=== PATIENT | female | born 1990 | race Caucasian/White ===

== ENCOUNTER 2019-03-17 11:36 | Emergency (ER) | payer OTHER ==
[2019-03-17 11:53] VITALS: BP 149/97
--- NOTE | 2019-03-17 12:10 | UC ---
Bite Injury/Animal HPI - HPI Summary HPI Summary: 29-year-old woman comes in with a chief complaint of dog bite to the left forearm. 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 Patient herself has been immunized for rabies. There was some bleeding from the wound there's 2 puncture wounds. Bleeding was stopped by direct pressure. Patient has full range of motion of the elbow wrists and fingers. Range of motion is painless. I asked the patient if she was worried about a broken bone she denies any concern or broken bone she feels the injury is only into the subcutaneous tissue. - History of Current Complaint Chief Complaint: UCBiteInjury Stated Complaint: DOG BITE Time Seen by Provider: 03/17/19 11:58 Hx Last Menstrual Period: 02/24/19 Pain Intensity: 5 - Allergies/Home Medications Allergies/Adverse Reactions: Allergies Allergy/AdvReac Type Severity Reaction Status Date / Time No Known Allergies Allergy Verified 03/17/19 11:53 Home Medications: Home Medications Sertraline* [Zoloft*] 200 mg PO BEDTIME 03/17/19 [History Confirmed 03/17/19] diPHENhydraMINE PO* [Benadryl PO 50 MG CAP*] 1 tab PO DAILY 03/17/19 [History Confirmed 03/17/19] PMH/Surg Hx/FS Hx/Imm Hx Previously Healthy: Yes - Surgical History Surgical History: Yes Surgery Procedure, Year, and Place: wisdom teeth - Family History Known Family History: Positive: Non-Contributory - Social History Alcohol Use: None Substance Use Type: None Smoking Status (MU): Never Smoked Tobacco Review of Systems All Other Systems Reviewed And Are Negative: Yes Constitutional: Positive: Negative Skin: Positive: Other - SEE HPI Eyes: Positive: Negative ENT: Positive: Negative Respiratory: Positive: Negative Cardiovascular: Positive: Negative Gastrointestinal: Positive: Negative Motor: Positive: Negative Neurovascular: Positive: Negative Musculoskeletal: Positive: Negative Neurological: Positive: Negative Psychological: Positive: Negative Is Patient Immunocompromised?: No Physical Exam Triage Information Reviewed: Yes Appearance: Well-Appearing, No Pain Distress, Well-Nourished Vital Signs: Initial Vital Signs Temp 98.9 F 03/17/19 11:51 Pulse 93 03/17/19 11:51 Resp 16 03/17/19 11:51 BP 149/97 03/17/19 11:51 Pulse Ox 100 03/17/19 11:51 Vital Signs Reviewed: Yes Eye Exam: Normal Eyes: Positive: Conjunctiva Clear Neck: Positive: Supple Respiratory: Positive: No respiratory distress Musculoskeletal: Positive: Strength Intact, ROM Intact Neurological: Positive: Alert Psychological: Positive: Age Appropriate Behavior Skin: Positive: Other - There are 2 puncture wounds left forearm on the ventral surface of both 1 cm in length into the subcutaneous tissue. There are open 3 mm. No active bleeding. Fingers wrist elbow have full range of motion full- strength normal sensation normal capillary refill. On examination there is no evidence of tendon or bone involvement at this time. No drainage from the wounds. Bite Injury Course/Dx - Course Course Of Treatment: Patient is up-to-date on her tetanus she is also up-to-date on her rabies and the dog is known to have it's rabies vaccine. Nursing cleaned the wound in clinic. Started the patient on Augmentin 875 mg by mouth twice a day for 5 days for prophylactic treatment. Patient knows to follow up if she gets worse or any questions or concerns. - Differential Dx/Diagnosis Provider Diagnosis: Dog bite of left arm Discharge - Sign-Out/Discharge Documenting (check all that apply): Patient Departure All imaging exams completed and their final reports reviewed: No Studies - Discharge Plan Condition: Stable Disposition: HOME Prescriptions: Amoxicillin/Clavulanate TAB* [Augmentin TAB 875*] 875 mg PO BID #10 tab Patient Education Materials: Animal Bite (ED) [place] [facility] [place] [facility] [Outside] [facility] [Provider Group] Additional Instructions: FOLLOW UP WITH YOUR DOCTOR IF NOT COMPLETELY IMPROVED. GO TO THE EMERGENCY DEPARTMENT IF YOUR CONDITION WORSENS; SIGNS OF INFECTION, PAIN, FEVER, YOU FEEL ILL OR ANY QUESTIONS OR CONCERNS. - Billing Disposition and Condition Condition: STABLE Disposition: Home
== END 2019-03-17 12:25 | disposition home or self-care (01) ==
LOC: UCEAST 11:36
DX: S51.852A Open bite of left forearm, initial encounter (principal); W54.0XXA Bitten by dog, initial encounter; Y92.9 Unspecified place or not applicable
CPT/HCPCS: 99202; G0463

== ENCOUNTER 2020-11-16 05:41 | Inpatient (IN) ==
[2020-11-16] MEDS ORDERED: Buffered Lidocaine 1% SYRIN 1 ml INTRADERM ONE (06:00)
[2020-11-16] MEDS ORDERED: Lactated Ringers 1000 ml BAG 1,000 ML IV SCH (06:00)
[2020-11-16] MEDS ORDERED: Heparin 5000 UNITS/ML 1 mL VIAL ONE (06:19)
[2020-11-16] MEDS ORDERED: ceFAZolin 1 GM ADVAN 1 GM ADDV.VIAL IVPB ONE (06:20)
[2020-11-16] MEDS ORDERED: ceFAZolin 2 GM PREMIX 2 GM/50 ML BAG ONE (06:20)
[2020-11-16] MEDS ORDERED: Ondansetron 4 mg VIAL 2 MG/ML 2 ml VIAL ONE (06:56)
[2020-11-16] MEDS ORDERED: Midazolam 2 mg/2 ml VIAL 1 mg/ml 2 ml VIAL (2 mg) ONE (06:56)
[2020-11-16] MEDS ORDERED: fentaNYL 250 mcg/5 ml 50 MCG/ML 5 ml VIAL (250 MCG) ONE (06:56)
[2020-11-16] MEDS ORDERED: Lidocaine 2% PF 5 ML VIAL ONE (06:56)
[2020-11-16] MEDS ORDERED: Dexamethasone IV 4 MG/ML VIAL 1 ml VIAL ONE (06:56)
[2020-11-16] MEDS ORDERED: Rocuronium 50 mg VIAL 10 mg/ml 5 ml VIAL (50 mg) ONE ×3 (06:56→09:35)
[2020-11-16] MEDS ORDERED: Propofol 10 MG/ML 20 ML BTL ONE (06:56)
[2020-11-16] MEDS ORDERED: Methylene Blue 0.5 % 50 MG/10 ML AMP IV ONE (07:15)
[2020-11-16] MEDS ORDERED: HYDROmorphone 1 MG/1 ML SYRINGE ONE ×2 (08:26→09:55)
[2020-11-16] MEDS ORDERED: Labetalol IV 5 MG/ML 20 ml VIAL ONE (08:58)
[2020-11-16] MEDS ORDERED: Ondansetron 4 mg VIAL 2 MG/ML 2 ml VIAL IV PRN ×2 (10:33→10:37)
[2020-11-16] MEDS ORDERED: HYDROmorphone 0.5 MG/0.5 ML SYRINGE IV SLOW PU PRN (10:33)
[2020-11-16] MEDS ORDERED: diPHENhydraMINE IV 50 MG/ML 1 ml VIAL (BENADRYL) SLOW PUSH PRN (10:33)
[2020-11-16] MEDS ORDERED: DiMENhydriNATE IV 50 mg/ml 1 ml VIAL IV PUSH PRN (10:37)
[2020-11-16] MEDS ORDERED: HYDROmorphone 1 MG/1 ML SYRINGE IV PRN (10:37)
[2020-11-16] MEDS ORDERED: fentaNYL 100 mcg/2 ml 50 MCG/ML VIAL ONE (10:45)
[2020-11-16] MEDS: fentaNYL 100 mcg/2 ml 50 MCG/ML VIAL IV PRN ×2 (10:50→11:01)
[2020-11-16] MEDS: Lactated Ringers 1000 ml BAG 1,000 ML IV SCH ×2 (12:02→19:24)
[2020-11-16] MEDS: Heparin 5000 UNITS/ML 1 mL VIAL SUBCUT SCH ×2 (14:05→21:31)
[2020-11-16] MEDS: HYDROmorphone 1 MG/1 ML SYRINGE IV SLOW PU PRN (21:30)
[2020-11-17] MEDS: HYDROmorphone 1 MG/1 ML SYRINGE IV SLOW PU PRN ×3 (02:14→13:03)
[2020-11-17] MEDS: Lactated Ringers 1000 ml BAG 1,000 ML IV SCH ×2 (02:15→09:44)
[2020-11-17] MEDS: Heparin 5000 UNITS/ML 1 mL VIAL SUBCUT SCH ×3 (05:28→22:20)
[2020-11-17] MEDS ORDERED: Pantoprazole VIAL 40 MG VIAL IV SCH (09:00)
[2020-11-17] MEDS ORDERED: CLINDAMYCIN 1% TOPICAL PRN (09:24)
[2020-11-17] MEDS ORDERED: diPHENhydraMINE 25 mg TAB PO PRN (09:24)
[2020-11-17] MEDS: HYDROcodone/ACET. 7.5/325 LIQ 15 ML UDC PO PRN (16:16)
[2020-11-17] MEDS: D5W 1/2 NS KCl 20 meq 1000 ml 1,000 ML IV SCH (17:24)
[2020-11-17] MEDS ORDERED: TRETINOIN TOPICAL SCH (21:00)
[2020-11-18] MEDS: HYDROcodone/ACET. 7.5/325 LIQ 15 ML UDC PO PRN ×2 (00:52→10:26)
[2020-11-18] MEDS: D5W 1/2 NS KCl 20 meq 1000 ml 1,000 ML IV SCH ×2 (02:29→11:15)
[2020-11-18] MEDS: Heparin 5000 UNITS/ML 1 mL VIAL SUBCUT SCH (06:09)
[2020-11-18 11:32] VITALS: BP 130/74
[2020-11-19] MEDS ORDERED: Scopolamine PATCH Remove NOTE PATCH OFF ONE (06:30)
== END 2020-11-18 13:05 | disposition home or self-care (01) | DRG 951 ==
LOC: AA 05:41 → SSU 11:53
PROVIDERS: ADMIT Surgery; ATTEND Surgery